=== PATIENT | female | born 1945 | race Caucasian/White ===

== ENCOUNTER 2018-03-26 08:44 | Emergency (ER) | payer MEDICARE, OTHER ==
[~2018-03-26] VITALS: Ht 157.5 cm; Wt 65.8 kg
[~2018-03-26 08:44] MED LIST: ASPI81EC; DIPH50 PO; HYDACE5 PO; LEVSOD100; LEVSOD125 PO; META800 PO; MONT10T PO; MULVITA; PRED10 PO; PROACE100 PO; RANI150 PO; VALD20 PO; [UNRECOGNIZED DRUG - OTHER]; xyzal
[2018-03-26] MEDS ORDERED: Ranitidine HCl300 MG (09:00)
[2018-03-26] MEDS ORDERED: LEVSOD88 PO (09:00)
[2018-03-26] MEDS ORDERED: LEVOCETIRIZINE D5 MG PO (09:01)
[2018-03-26] MEDS ORDERED: PRED20 PO (09:21)
== END 2018-03-26 09:31 | disposition home or self-care (01) ==
LOC: ER 08:44
DX: L50.8 Other urticaria (principal); E03.9 Hypothyroidism, unspecified; Z88.5 Allergy status to narcotic agent; Z79.899 Other long term (current) drug therapy
CPT/HCPCS: 96372; 99282; J2930

== ENCOUNTER 2018-03-28 08:30 | Emergency (ER) | payer MEDICARE, OTHER ==
[~2018-03-28] VITALS: Ht 152.4 cm; Wt 72.6 kg
[~2018-03-28 08:30] MED LIST changes: +LEVOCETIRIZINE D5 MG PO; +LEVSOD88 PO; +PRED20 PO; +Ranitidine HCl300 MG
[2018-03-28] MEDS ORDERED: Prednisone20 MG PO (10:43)
== END 2018-03-28 11:02 | disposition home or self-care (01) ==
LOC: ER 08:30
DX: L50.9 Urticaria, unspecified (principal); Z88.5 Allergy status to narcotic agent; Z79.899 Other long term (current) drug therapy
CPT/HCPCS: 96372; 99282; J3301

== ENCOUNTER 2019-01-15 01:10 | Emergency (ER) | payer MEDICARE, OTHER ==
[~2019-01-15] VITALS: Ht 165.1 cm; Wt 68.0 kg
[~2019-01-15 01:10] MED LIST changes: +Prednisone20 MG PO
== END 2019-01-15 03:35 | disposition home or self-care (01) ==
LOC: ER 01:10
DX: L98.499 Non-pressure chronic ulcer of skin of other sites with unspecified severity (principal); Z88.5 Allergy status to narcotic agent; Z79.899 Other long term (current) drug therapy; Z79.52 Long term (current) use of systemic steroids
CPT/HCPCS: 99282

== ENCOUNTER → 2022-12-01 | Outpatient (CLI) | payer OTHER | END | disposition home or self-care (01) | LOC: LAB 07:30 → LAB SHORT 07:30 | DX: E03.9 Hypothyroidism, unspecified (principal); K21.00 Gastro-esophageal reflux disease with esophagitis, without bleeding; R21 Rash and other nonspecific skin eruption | CPT/HCPCS: 85651 ==

== ENCOUNTER 2023-07-21 04:35 | Emergency (ER) | payer OTHER ==
[~2023-07-21] VITALS: Ht 152.4 cm; Wt 70.3 kg
[2023-07-21 06:13] LABS: Influenza A, PCR NEGATIVE (NEGATIVE); Influenza B, PCR NEGATIVE (NEGATIVE); Resp Syncytial Virus, PCR NEGATIVE (NEGATIVE)
[2023-07-21 06:55] LABS: SARS-Cov-2 (COVID-19) PCR, MMC POSITIVE (NEGATIVE)
[2023-07-21] MEDS ORDERED: ACET500 PO (06:59)
[2023-07-21 07:24] VITALS: BP 130/79
== END 2023-07-21 07:30 | disposition home or self-care (01) ==
LOC: ER 04:35
PROVIDERS: Emergency Medicine
DX: U07.1 COVID-19 (principal); Z88.5 Allergy status to narcotic agent; Z79.890 Hormone replacement therapy; Z79.899 Other long term (current) drug therapy
CPT/HCPCS: 0241U; 87081; 87430; 99283; A9270